=== PATIENT | female | born 1945 | race Caucasian/White ===

== ENCOUNTER → 2017-02-17 | Outpatient (REF) | payer MEDICARE ==
[~2017-02-17] MED LIST: ACET1TAB17 PO; CITA40TA4 PO; LEVO88TA3 PO
[2017-02-17 11:55] LABS: MEAN CORPUSCULAR HEMOGLOBIN 30.6 pg (27.0-33.0); MEAN CORPUSCULAR HGB CONC 33.1 g/dl (32.0-36.5); MEAN CORPUSCULAR VOLUME 92.5 fl (80.0-96.0); RED CELL DISTRIBUTION WIDTH 12.9 % (11.5-14.5); WHITE BLOOD COUNT 7.5 K/mm3 (4.0-10.0)
[2017-02-17 12:32] LABS: ALBUMIN 3.7 GM/DL (3.2-5.2); ALBUMIN/GLOBULIN RATIO 1.32 (1.00-1.93); ALKALINE PHOSPHATASE 109 U/L (45-117); ALT/SGPT 18 U/L (12-78); ANION GAP 7 MEQ/L (8-16); AST/SGOT 16 U/L (15-37); BILIRUBIN,TOTAL 0.3 MG/DL (0.2-1.0); BLOOD UREA NITROGEN 18 MG/DL (7-18); CALCIUM LEVEL 8.6 MG/DL (8.8-10.2); CARBON DIOXIDE LEVEL 28 MEQ/L (21-32); CHLORIDE LEVEL 108 MEQ/L (98-107); CHOLESTEROL LEVEL 222 MG/DL (<200); CREATININE FOR GFR 0.77 MG/DL (0.55-1.02); GLOMERULAR FILTRATION RATE > 60.0 (>39); GLUCOSE, FASTING 84 MG/DL (83-110); POTASSIUM SERUM 4.6 MEQ/L (3.5-5.1); SODIUM LEVEL 143 MEQ/L (136-145); TOTAL PROTEIN 6.5 GM/DL (6.4-8.2); TRIGLYCERIDES LEVEL 138 MG/DL (<150)
== END ==
LOC: M SFHCPLAZ 09:58
PROVIDERS: ATTEND Nurse Practitioner Adult Health
DX: E03.9 Hypothyroidism, unspecified (principal); M81.0 Age-related osteoporosis without current pathological fracture; R07.9 Chest pain, unspecified; R51 Headache; R29.6 Repeated falls; G47.00 Insomnia, unspecified; Z80.0 Family history of malignant neoplasm of digestive organs; Z86.79 Personal history of other diseases of the circulatory system; Z79.899 Other long term (current) drug therapy
CPT/HCPCS: 36415; 80053; 80061; 82306; 84443; 85027; 93005; G0463

== ENCOUNTER → 2017-03-05 | Outpatient (CLI) | payer MEDICARE ==
[~2017-03-05] MED LIST changes: +ACET-654 PO; -ACET1TAB17 PO
--- NOTE | 2017-03-05 15:20 | REPMRS ---
Patient History The patient states she had a clinical breast exam in 02/25 Patient is postmenopausal. Family history of colorectal cancer in sister at age 68. Digital Woman Screen Mammo: March 05, 2017 - Exam #: [id number] Bilateral CC and MLO view(s) were taken. Technologist: Shelly Denney, Technologist Prior study comparison: July 26, 2008, left breast diagnostic unilateral mammo, performed at [facility]. July 06, 2008, bilateral screening mammogram performed at [facility]. FINDINGS: There are scattered fibroglandular densities. There has been no change in the appearance of the mammogram from the prior studies. There is a mild amount of scattered fibroglandular density which is fairly symmetric. There is no interval development of dominant mass, architectural distortion, or clustered microcalcification suggestive of malignancy. ASSESSMENT: BI-RADS/ACR category 1 mammogram. Negative. Recommendation Routine screening mammogram in 1 year (for women over age 40). This mammogram was interpreted with the aid of an FDA-approved computer-aided dectection system. Electronically Signed By: Lorne Jones MD 03/05/17 [id number]
== END ==
LOC: M WHC 14:16
PROVIDERS: ATTEND Nurse Practitioner Adult Health
DX: Z12.31 Encounter for screening mammogram for malignant neoplasm of breast (principal)

== ENCOUNTER → 2017-03-11 | Outpatient (CLI) | payer MEDICARE ==
--- NOTE | 2017-03-11 18:51 | REP ---
CT HEAD WITHOUT CONTRAST: HISTORY: Headaches. COMPARISON: None. Mild diffuse lucency is seen throughout the deep cerebral white matter. The ventricles and sulci are within normal limits. There is no mass or mass effect. There are no extra-axial fluid collections. The posterior fossa is within normal limits. The cisterns are open. There is no skull fracture. The images paranasal sinuses and mastoid air cells are clear. IMPRESSION: Age-related changes. Signed by Frank Sawyer DO 03/11/2017 07:03 P
== END ==
LOC: M RAD 17:53
PROVIDERS: ATTEND Nurse Practitioner Adult Health
DX: R51 Headache (principal)

== ENCOUNTER → 2017-07-08 | Outpatient (CLI) | payer MEDICARE ==
[~2017-07-08] MED LIST changes: -ACET-654 PO; +ACET1TAB17 PO
--- NOTE | 2017-07-11 09:52 | DEXA ---
AP SPINE L1 - L4 1.246 0.4 2.2 LT FEMUR TOTAL 1.068 0.5 2.2 RT FEMUR TOTAL 1.093 0.7 2.4 TOTAL BODY TOTAL OTHER DUAL FEMUR FRAX* ASSESSMENT Risk factors: Not performed. 10 year probability of fracture Major osteoporotic fracture % Hip fracture % COMMENTS: Normal bone densitometry of the spine and hips. The density of the spine has decreased 1.3% since 04/03/2005. The density of the left hip has decreased 13.1% since 04/03/2005. The density of the right hip has decreased 8.7% since 04/03/2005. The decreased density of the spine does not represent a significant change. The decreased density of the left hip does represent a significant change. The decreased density of the right hip does represent a significant change. FOLLOW-UP: Recommendation for the next bone density exam: 5 years. LOREN
== END ==
LOC: M WHC 13:18
PROVIDERS: ATTEND Nurse Practitioner Adult Health
DX: M81.0 Age-related osteoporosis without current pathological fracture (principal); Z78.0 Asymptomatic menopausal state

== ENCOUNTER → 2017-09-17 | Outpatient (CLI) | payer MEDICARE ==
--- NOTE | 2017-09-17 16:06 | REP ---
Chest two views HISTORY: Chest pain Comparison: None The lungs are clear. The heart is normal in size. The pulmonary vasculature is normal in appearance. Degenerative change is present in the thoracic spine. IMPRESSION: No acute disease. Signed by Luis Reyes MD 09/17/2017 03:57 P
== END ==
LOC: M WUC 13:47
PROVIDERS: ATTEND Internal Medicine
DX: R07.89 Other chest pain (principal)

== ENCOUNTER → 2018-01-19 | Outpatient (REF) | payer MEDICARE ==
[2018-01-19 15:01] LABS: THYROID STIMULATING HORMONE 0.819 uIU/ML (0.358-3.740)
== END ==
LOC: M SFHCPLAZ 11:46
DX: E03.9 Hypothyroidism, unspecified (principal)
CPT/HCPCS: 84443

== ENCOUNTER → 2018-03-31 | Outpatient (CLI) | payer MEDICARE ==
[~2018-03-31] MED LIST changes: -ACET1TAB17 PO; -CITA40TA4 PO; -LEVO88TA3 PO; +PROHANCE 279.3MG/ML 15ML VIAL (A9576) As Ordered
== END ==
LOC: M RAD 10:50
DX: H05.211 Displacement (lateral) of globe, right eye (principal)
CPT/HCPCS: A9576

== ENCOUNTER → 2018-08-24 | Outpatient (CLI) | payer MEDICARE | LOC: M RAD 15:07 | DX: G50.1 Atypical facial pain (principal) | CPT/HCPCS: 70486 ==

== ENCOUNTER → 2018-09-23 | Outpatient (CLI) | payer MEDICARE | LOC: M WHC 14:14 | DX: Z12.31 Encounter for screening mammogram for malignant neoplasm of breast (principal); Z78.0 Asymptomatic menopausal state; Z80.0 Family history of malignant neoplasm of digestive organs | CPT/HCPCS: 77067 ==

== ENCOUNTER 2019-05-05 10:25 | Day surgery (SDC) | payer MEDICARE ==
[~2019-05-05] VITALS: Ht 158.1 cm; Wt 64.0 kg
[~2019-05-05 10:25] MED LIST changes: +ACET1TAB55 PO; +CITA40TA4 PO; +LEVO88TA3 PO; +MULT-40 PO; +NS 1,000 ML IV ONE; +OSTE5TAB PO; -PROHANCE 279.3MG/ML 15ML VIAL (A9576) As Ordered; +VITAD1000T PO; +ZANT150T40 PO; +tumeric PO
[2019-05-05] MEDS ORDERED: PROPOFOL 200 MG/20 ML VIAL As Ordered ONE (10:58)
[2019-05-05] MEDS ORDERED: LIDOCAINE 2% INJ 100 MG/5 ML SDV (FOR ANES.) As Ordered ONE (10:58)
--- NOTE | 2019-05-05 11:30 | ROOR ---
Patient Name: Shelly Hilton Procedure Date: 05/05/2019 11:08 AM Date of : 1945 Age: 73 Room: [facility] Gender: Female Note Status: Finalized Procedure: Colonoscopy Indications: High risk colon cancer surveillance: Personal history of colonic polyps Providers: DO Jesus Gomez MD: Isabelle WALKER NP Requesting Provider: Medicines: Propofol per Anesthesia Complications: No immediate complications. Procedure: Pre-Anesthesia Assessment: - Prior to the procedure, a History and Physical was performed, and patient medications and allergies were reviewed. The patient is competent. The risks and benefits of the procedure and the sedation options and risks were discussed with the patient. All questions were answered and informed consent was obtained. Patient identification and proposed procedure were verified by the physician, the nurse, the anesthesiologist and the flight data technician in the endoscopy suite. Mental Status Examination: alert and oriented. Airway Examination: normal oropharyngeal airway and neck mobility. Respiratory Examination: clear to auscultation. CV Examination: normal. Prophylactic Antibiotics: The patient does not require prophylactic antibiotics. Prior Anticoagulants: The patient has taken no previous anticoagulant or antiplatelet agents. ASA Grade Assessment: II - A patient with mild systemic disease. After reviewing the risks and benefits, the patient was deemed in satisfactory condition to undergo the procedure. The anesthesia plan was to use monitored anesthesia care (MAC). Immediately prior to administration of medications, the patient was re-assessed for adequacy to receive sedatives. The heart rate, respiratory rate, oxygen saturations, blood pressure, adequacy of pulmonary ventilation, and response to care were monitored throughout the procedure. The physical status of the patient was re-assessed after the procedure. The Colonoscope was introduced through the anus and advanced to the cecum, identified by the ileocecal valve. The colonoscopy was performed without difficulty. The patient tolerated the procedure well. Findings: The perianal exam findings include non-thrombosed internal hemorrhoids and internal hemorrhoids that prolapse with straining, but spontaneously regress to the resting position (Grade II). A less than 5 mm polyp was found in the rectum. The polyp was hyperplastic. The polyp was removed with a jumbo cold forceps. Resection and retrieval were complete. Estimated blood loss was minimal. The exam was otherwise without abnormality on direct and retroflexion views. Impression: - Non-thrombosed internal hemorrhoids and internal hemorrhoids that prolapse with straining, but spontaneously regress to the resting position (Grade II) found on perianal exam. - One less than 5 mm polyp in the rectum, removed with a jumbo cold forceps. Resected and retrieved. - The examination was otherwise normal on direct and retroflexion views. Recommendation: - Patient has a contact number available for emergencies. The signs and symptoms of potential delayed complications were discussed with the patient. Return to normal activities tomorrow. Written discharge instructions were provided to the patient. - Repeat colonoscopy in 5-10 years for surveillance based on pathology results. - Return to my office as previously scheduled. George Suarez DO 05/05/2019 11:30:31 AM Electronically signed by George Suarez DO Number of Addenda: 0 Note Initiated On: 05/05/2019 11:08 AM Estimated Blood Loss: Estimated blood loss: none.
[2019-05-05 12:15] VITALS: BP 148/71
== END 2019-05-05 12:26 | disposition home or self-care (01) ==
LOC: M OPP 10:25
PROVIDERS: ATTEND Surgery
DX: Z12.11 Encounter for screening for malignant neoplasm of colon (principal); Z86.010 Personal history of colon polyps; K62.1 Rectal polyp; K64.1 Second degree hemorrhoids; E03.9 Hypothyroidism, unspecified; R07.9 Chest pain, unspecified; K58.9 Irritable bowel syndrome, unspecified; K21.9 Gastro-esophageal reflux disease without esophagitis; M19.90 Unspecified osteoarthritis, unspecified site; M81.0 Age-related osteoporosis without current pathological fracture; F32.9 Major depressive disorder, single episode, unspecified; Z78.0 Asymptomatic menopausal state; Z88.8 Allergy status to other drugs, medicaments and biological substances; Z79.899 Other long term (current) drug therapy

== ENCOUNTER 2019-05-18 11:36 | Emergency (ER) | payer MEDICARE ==
[~2019-05-18] VITALS: Ht 157.5 cm; Wt 63.6 kg
[~2019-05-18 11:36] MED LIST changes: +CHOL100029 PO; -NS 1,000 ML IV ONE; -VITAD1000T PO
[2019-05-18 12:48] LABS: BASO # 0.1 10^3/uL (0.0-0.2); BASO % 0.5 % (0.0-1.0); EOS # 0.1 10^3/uL (0.0-0.50); EOS % 0.8 % (0.0-3.0); HEMATOCRIT 42.5 % (36.0-47.0); HEMOGLOBIN 13.8 g/dl (12.0-15.5); LYMPH # 2.2 10^3/uL (1.5-4.5); LYMPH % 18.8 % (24.0-44.0); MEAN CORPUSCULAR HEMOGLOBIN 30.7 pg (27.0-33.0); MEAN CORPUSCULAR HGB CONC 32.5 g/dl (32.0-36.5); MEAN CORPUSCULAR VOLUME 94.7 fl (80.0-96.0); MONO # 0.7 10^3/uL (0.0-0.8); MONO % 5.9 % (0.0-5.0); NEUTROPHILS # 8.5 10^3/uL (1.8-7.7); NEUTROPHILS % 73.1 % (36.0-66.0); PLATELET COUNT, AUTOMATED 253 10^3/uL (150-450); RED BLOOD COUNT 4.49 10^6/uL (4.00-5.40); WHITE BLOOD COUNT 11.6 10^3/uL (4.0-10.0)
[2019-05-18] MEDS ORDERED: ACETAMINOPHEN 325 MG TAB PO ONE (13:00)
[2019-05-18 13:17] LABS: ERYTHROCYTE SEDIMENTATION RATE 16 mm/hr (0-30)
[2019-05-18 13:27] LABS: BLOOD UREA NITROGEN 20 MG/DL (7-18); C REACTIVE PROTEIN QUANTITATIV 0.31 MG/DL (0.00-0.30); CALCIUM LEVEL 9.5 MG/DL (8.8-10.2); CARBON DIOXIDE LEVEL 31 MEQ/L (21-32); CHLORIDE LEVEL 106 MEQ/L (98-107); CREATININE FOR GFR 0.87 MG/DL (0.55-1.30); GLOMERULAR FILTRATION RATE > 60.0 (>39); GLUCOSE, FASTING 88 MG/DL (70-100); POTASSIUM SERUM 4.3 MEQ/L (3.5-5.1); SODIUM LEVEL 141 MEQ/L (136-145)
[2019-05-18] MEDS ORDERED: IBUPROFEN 400 MG TAB PO ONE (13:45)
--- NOTE | 2019-05-18 13:45 | REP ---
CT HEAD WITHOUT CONTRAST: HISTORY: Right-sided headache. Areas of decreased attentuation are present in the periventricular and subcortical white matter. This represents small vessel ischemic disease. There is no intraparenchymal hemorrhage, mass or midline shift. The ventricular system and cortical sulci are dilated consistent with minimal volume loss. There is no extracerebral collection. The visualized sinuses are clear. IMPRESSION: 1. Small vessel ischemic disease. 2. Minimal volume loss. Electronically Signed by Luis Reyes MD 05/18/2019 01:47 P
[2019-05-18 14:03] VITALS: BP 111/60
[2019-05-18] MEDS ORDERED: DEPA250T2 PO (14:06)
== END 2019-05-18 14:23 | disposition home or self-care (01) ==
LOC: M ED 11:36
DX: R51 Headache (principal); R90.82 White matter disease, unspecified; E03.9 Hypothyroidism, unspecified; Z79.899 Other long term (current) drug therapy; Z79.890 Hormone replacement therapy; Z88.8 Allergy status to other drugs, medicaments and biological substances
CPT/HCPCS: 36415; 70450; 80048; 84443; 85025; 85652; 86140; 99283; G0463

== ENCOUNTER → 2024-12-20 | Outpatient (REF) | payer MEDICARE, OTHER ==
[~2024-12-20] MED LIST changes: -CITA40TA4 PO; +CITA40TA7 PO; +DEPA250T2 PO
[2024-12-22 15:46] LABS: FOLATE 20.1 NG/ML (>5.4)
== END ==
LOC: M LAB REF 15:06
PROVIDERS: ATTEND Internal Medicine
DX: R20.2 Paresthesia of skin (principal)